=== PATIENT | female | born 1985 | race Caucasian/White ===

== ENCOUNTER 2019-10-05 08:44 | Day surgery (SDC) | payer OTHER ==
[~2019-10-05] VITALS: Ht 157.5 cm; Wt 72.6 kg
--- NOTE | ~2019-10-05 | OR ---
[facility] [address], [place] [address] Draft DATE OF OPERATION: 10/05/2019 SURGEON: Sergio Luong MD PREOPERATIVE DIAGNOSES: 1. Supraumbilical incisional hernia trocar site. 2. History of infraumbilical hernia repair with implantation of mesh (Dr. Fernandez). POSTOPERATIVE DIAGNOSES: 1. Supraumbilical incisional hernia trocar site. 2. History of infraumbilical hernia repair with implantation of mesh (Dr. Fernandez). PROCEDURE: Repair of incisional hernia (trocar site), supraumbilical area with implantation of Prolene mesh underlay technique. ANESTHESIA: General endotracheal, Js Yarbrough CRNA and local 10 mL of 0.25% Marcaine with epinephrine. 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 A supraumbilical incision was used as she has had prior umbilical hernia repair through an infraumbilical transverse incision by Dr. Neri Fernandez in 2012. She has developed a hernia in the trocar site area and the supraumbilical area. The hernia has enlarged over time and delay of repair due to the COVID pandemic. She does have pain with hernia from time to time. She is admitted at this time to undergo repair of the hernia and understands the risks of bleeding, infection, recurrence, and other unforeseen complications. FINDINGS: The prior hernia repair in the infraumbilical area was intact and had prosthetic mesh implanted from the past. The hernia defect related to the supraumbilical trocar site was amorphous in its size and approximately 4-5 cm in maximum dimension. Repair was accomplished by development of the properitoneal space. Reapproximation of the hernia sac remnants and implantation of Prolene mesh in an underlay technique using Prolene pledgets. The fascia was reapproximated transversely over the repair as well. DESCRIPTION OF PROCEDURE: The patient was brought to the operating room, given a general endotracheal anesthetic. PATIENT NAME: RENAY CONNOR OPERATIVE REPORT DATE OF : 85 REPORT #: [id number] PHYSICIAN: SERGIO LUONG MD PCP: DEONDRE BLANCHARD MD REPORT IS CONFIDENTIAL AND NOT TO BE RELEASED WITHOUT AUTHORIZATION [facility] [address], [place] [address] Draft Preoperative antibiotic Ancef was given. Sequential compression device stockings were used. The abdomen was prepared with a chlorhexidine solution and draped sterilely. Palpation revealed the defect of the hernia to be in the supraumbilical area below the previous trocar site. An umbilical piercing area was noted as well and a transverse incision inferior to the umbilicus from prior repair. A curvilinear incision was made in the umbilicus on the left side. Dissection carried through the dermis sharply. The subcutaneous tissue was with blunt and electrocautery dissection. Dissection inferiorly showed intact mesh from prior hernia repair at the umbilicus itself. Cephalad to this, the trocar wound site had developed herniation. The fascial defect was well defined from the surrounding subcutaneous tissue and the hernia sac was noted as well. The hernia sac was opened and intraabdominal evaluation showed normal bowel loops and so on. The hernia sac was carefully dissected free from the surrounding fascial edges. The defect ultimately found to be 4-5 cm in size. The properitoneal space was developed circumferentially except in the inferior portion where a dense adherence of peritoneum to prior mesh repair was noted. Once the properitoneal space was fully developed, the remnant of the hernia sac was closed with running 2-0 Vicryl suture. A segment of Prolene mesh was cut to a circular configuration and secured in an underlay technique with interrupted 0 Prolene suture and Prolene mesh pledgets. The fascia was then reapproximated transversely with interrupted horizontal mattress 0 Prolenes with Prolene mesh pledgets as well. A 10 mL of 0.25% Marcaine with epinephrine was injected locally. Subcutaneous tissue was reapproximated with interrupted 2-0 Vicryl and skin closed with interrupted 3-0 Vicryl. Steri-Strips were applied as was a silver sponge dressing. The patient was ultimately extubated and transferred to the recovery room in good condition having suffered no complication. Sponge, needle, and instrument counts reported as correct x3. Sergio Luong MD JM/MODL /[id number] cc: Deondre Blanchard MD Copies: DEONDRE BLANCHARD MD PATIENT NAME: RENAY CONNOR OPERATIVE REPORT DATE OF : 85 REPORT #: [id number] PHYSICIAN: SERGIO LUONG MD PCP: DEONDRE BLANCHARD MD REPORT IS CONFIDENTIAL AND NOT TO BE RELEASED WITHOUT AUTHORIZATION [place] [address] Draft ~ PATIENT NAME: RENAY CONNOR OPERATIVE REPORT DATE OF : 85 REPORT #: [id number] PHYSICIAN: SERGIO LUONG MD PCP: DEONDRE BLANCHARD MD REPORT IS CONFIDENTIAL AND NOT TO BE RELEASED WITHOUT AUTHORIZATION
[~2019-10-05 08:44] MED LIST: ADDERALL XR 3030 MG PO; CLINPRO 5000113 GM MM; IBUPROFEN600 MG PO; LEXAPRO20 MG PO; MULTI VITAMIN1 EACH PO; NORCO 5-325 TA1 EACH PO; OXYCODON-ACETA1 EAC2 PO; PERIDEX473 M1 MM; TYLENOL325 MG PO
--- NOTE | 2019-10-05 10:52 | NUR ---
10/05/19 1052 Vanessa Bennett 1024 PT ARRIVED IN PACU SLEEPY C/O ABD PAIN. [employer] OFFICER GAVE FENTANYL IVP. 1030 RESTING. REU. 1035 OXYGEN REMOVED. SATS 97% ON RA. 1050 RESTING. REU.
[2019-10-05] MEDS ORDERED: TYLENOL325 MG PO (10:58)
[2019-10-05] MEDS ORDERED: MOTRIN IB200 MG PO (10:58)
[2019-10-05] MEDS ORDERED: PERCOCET 7.5-31 EACH PO (10:59)
--- NOTE | 2019-10-05 11:13 | NUR ---
ICED WATER, CRACKERS, APPLESAUCE GIVEN. CALL LIGHT WITHIN REACH. PATIENT IS UP TO THE BATHROOM. SHE AMBULATES WELL, DENIES DIZZINESS AND VOIDS 325 ML CLEAR, YELLOW URINE. PATIENT IS BACK IN BED. CALL LIGHT IS WITHIN REACH.
--- NOTE | 2019-10-05 12:57 | NUR ---
LE 1215: PATIENT REQUESTS DISCHARGE HOME. DISCHARGE INSTRUCTIONS ARE GIVEN. PATIENT AND SPOUSE VERBALIZE UNDERSTANDING. PATIENT IS GETTING DRESSED IN SPOUSE'S PRESENCE. PATIENT TRANSFERS HERSELF TO WHEELCHAIR AND THEN TO PERSONAL VEHICLE AND TOLERATES THAT WELL.
--- NOTE | 2019-10-05 14:11 | NUR ---
PT IS ALERT, ORIENTED AND SUPPORTED BY HER MILES. THEY HAVE TRAVELLED FROM [place], BOTH SEEM INFORMED, WAITING FOR AND NIRANJAN TO COME. NIRANJAN AMBROSIO IN, GAVE BLESSING
== END 2019-10-05 12:20 | disposition home or self-care (01) ==
LOC: DS 08:44
PROVIDERS: Surgery
PROC: 0WUF0JZ Supplement Abdominal Wall with Synthetic Substitute, Open Approach (ICD-10-PCS; principal; 2019-10-05 09:00)
DX: K43.2 Incisional hernia without obstruction or gangrene (principal); Z90.49 Acquired absence of other specified parts of digestive tract; Z98.890 Other specified postprocedural states; Z87.891 Personal history of nicotine dependence
CPT/HCPCS: 00832; C1781; J0690; J1100; J1644; J1885; J2001; J2405; J2704; J3010; J7121